=== PATIENT | female | born 1950 | race Caucasian/White ===

== ENCOUNTER → 2017-01-07 | Outpatient (REF) | payer MEDICARE, BC, OTHER | LOC: M LAB REF 16:41 | PROVIDERS: ATTEND Physician Assistant | DX: R30.0 Dysuria (principal) ==

== ENCOUNTER 2019-01-06 22:09 | Emergency (ER) | payer MEDICARE, BC, OTHER ==
[~2019-01-06] VITALS: Ht 165.1 cm; Wt 99.1 kg
[2019-01-07 00:18] LABS: INR 0.99; PROTHROMBIN TIME 12.8 SECONDS (11.8-14.0)
[2019-01-07 00:19] LABS: PARTIAL THROMBOPLASTIN TIME 28.1 SECONDS (25.0-38.4)
[2019-01-07 00:22] LABS: BASO % 0.1 % (0.0-1.0); EOS % 0.1 % (0.0-3.0); HEMOGLOBIN 14.7 g/dl (12.0-15.5); LYMPH # 2.1 10^3/uL (1.5-5.0); LYMPH % 24.3 % (24.0-44.0); MEAN CORPUSCULAR HEMOGLOBIN 31.6 pg (27.0-33.0); MEAN CORPUSCULAR HGB CONC 34.2 g/dl (32.0-36.5); MEAN CORPUSCULAR VOLUME 92.5 fl (80.0-96.0); MONO # 0.6 10^3/uL (0.0-0.8); MONO % 6.5 % (0.0-5.0); NEUTROPHILS # 5.8 10^3/uL (1.5-8.5); NEUTROPHILS % 68.6 % (36.0-66.0); PLATELET COUNT, AUTOMATED 265 10^3/uL (150-450); RED BLOOD COUNT 4.65 10^6/uL (4.00-5.40); WHITE BLOOD COUNT 8.4 10^3/uL (4.0-10.0)
[2019-01-07 00:24] LABS: ALBUMIN 3.4 GM/DL (3.2-5.2); BILIRUBIN,DIRECT 0.1 MG/DL (0.0-0.2); BILIRUBIN,TOTAL 0.3 MG/DL (0.2-1.0); TOTAL PROTEIN 7.2 GM/DL (6.4-8.2)
[2019-01-07] MEDS ORDERED: ONDANSETRON 4MG/2ML VIAL (J2405) IV ONE (00:45)
[2019-01-07] MEDS ORDERED: ASPI81TA85 PO (00:48)
[2019-01-07] MEDS ORDERED: PHEN30CA PO (00:48)
[2019-01-07] MEDS ORDERED: LEVO2TA PO (00:48)
[2019-01-07] MEDS ORDERED: SIMV20TA22 PO (00:48)
[2019-01-07] MEDS ORDERED: ISOVUE-370 76% 100ML VIAL (Q9967) As Ordered ONE (00:49)
[2019-01-07] MEDS: MORPHINE 4 MG/ML 1ML VIAL/SYRINGE (J2270) IV PRN ×2 (00:56→03:39)
--- NOTE | 2019-01-07 02:21 | REPVR ---
EXAM: CT Abdomen and Pelvis With Contrast EXAM DATE/TIME: 01/07/2019 12:42 AM CLINICAL HISTORY: 68 years old, female; Abdominal pain; Localized; Left lower quadrant (llq); Additional info: Llq pain TECHNIQUE: Imaging protocol: Computed tomography of the abdomen and pelvis with intravenous contrast. Radiation optimization: All CT scans at this facility use at least one of these dose optimization techniques: automated exposure control; mA and/or kV adjustment per patient size (includes targeted exams where dose is matched to clinical indication); or iterative reconstruction. Contrast material: ISO; Contrast volume: 100 ml; Contrast route: HAND; COMPARISON: No relevant prior studies available. FINDINGS: Heart: Cardiomegaly. Liver: Mild fatty infiltration of liver. Gallbladder and bile ducts: Normal. No calcified stones. No ductal dilation. Pancreas: Fatty atrophy of the pancreas. Spleen: Normal. No splenomegaly. Adrenals: Hyperplasia of the left adrenal gland versus nodule measuring up to 12.1 mm. Right adrenal gland is unremarkable. Kidneys and ureters: Normal. No hydronephrosis. Stomach and bowel: Multiple colonic diverticula most marked in the sigmoid diverticulum. Mild thickening of the sigmoid colon versus non-dilatation. No surrounding inflammatory changes. Mildly thickened and prominent small bowel loops measuring up to 3 cm in the left and mid abdomen. Contrast is seen passing through the bowel loops. Findings are concerning for enteritis in proper clinical setting. No evidence of bowel obstruction. Appendix: No evidence of appendicitis. Intraperitoneal space: Unremarkable. No free air. No significant fluid collection. Vasculature: Unremarkable. No abdominal aortic aneurysm. Lymph nodes: Unremarkable. No enlarged lymph nodes. Bladder: Unremarkable as visualized. Reproductive: Unremarkable as visualized. Bones/joints: Extensive degenerative changes with demineralization of the bones. Soft tissues: Unremarkable. IMPRESSION: Multiple colonic diverticula most marked in the sigmoid diverticulum. Mild thickening of the sigmoid colon versus non-dilatation. No surrounding inflammatory changes. Mildly thickened and prominent small bowel loops measuring up to 3 cm in the left and mid abdomen. Contrast is seen passing through the bowel loops. Findings are concerning for enteritis in proper clinical setting. No evidence of bowel obstruction. Electronically signed by: Cece Page On 01/07/2019 02:20:33 AM
[2019-01-07] MEDS ORDERED: metroNIDAZOLE (FLAGYL) 500 MG TAB PO ONE (05:00)
[2019-01-07] MEDS ORDERED: OXYCODONE/APAP 5MG/325MG(BULK FOR ED) 1 TABLET PO ONE (05:00)
[2019-01-07] MEDS ORDERED: CIPROFLOXACIN 500 MG TAB PO ONE (05:00)
[2019-01-07] MEDS ORDERED: PERC5TAB12 PO (05:04)
[2019-01-07] MEDS ORDERED: CIPR-249 PO (05:04)
[2019-01-07] MEDS ORDERED: FLAG500T PO (05:04)
[2019-01-07 05:20] VITALS: BP 156/87
--- NOTE | 2019-01-07 19:20 | ECGEPIP ---
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
[2019-01-08] MEDS ORDERED: PRAV40TA2 (13:08)
[2019-01-08] MEDS ORDERED: PHEN100C (13:08)
== END 2019-01-07 05:22 | disposition home or self-care (01) ==
LOC: M ED 22:09
DX: K57.32 Diverticulitis of large intestine without perforation or abscess without bleeding (principal); G40.909 Epilepsy, unspecified, not intractable, without status epilepticus; E03.9 Hypothyroidism, unspecified; F17.200 Nicotine dependence, unspecified, uncomplicated; Z79.82 Long term (current) use of aspirin; Z79.899 Other long term (current) drug therapy
CPT/HCPCS: 74177; 80047; 80076; 83690; 85025; 85610; 85730; 93005; 93041; 96374; 96375; 96376; 99285; J2270; J2405; Q9967

== ENCOUNTER 2019-01-08 12:57 | Emergency (ER) | payer MEDICARE, BC, OTHER ==
[~2019-01-08] VITALS: Ht 165.1 cm; Wt 99.7 kg
[~2019-01-08 12:57] MED LIST: ASPI81TA85 PO; CIPR-249 PO; FLAG500T PO; LEVO2TA PO; PERC5TAB12 PO; PHEN30CA PO; SIMV20TA2 PO
[2019-01-08] MEDS ORDERED: PHEN100C (13:08)
[2019-01-08] MEDS ORDERED: PRAV40TA2 (13:08)
[2019-01-08 14:45] LABS: BASO % 0.2 % (0.0-1.0); HEMATOCRIT 43.9 % (36.0-47.0); LYMPH # 1.8 10^3/uL (1.5-5.0); LYMPH % 27.6 % (24.0-44.0); MEAN CORPUSCULAR HEMOGLOBIN 32.3 pg (27.0-33.0); MEAN CORPUSCULAR HGB CONC 34.2 g/dl (32.0-36.5); MEAN CORPUSCULAR VOLUME 94.6 fl (80.0-96.0); MONO # 0.4 10^3/uL (0.0-0.8); MONO % 5.6 % (0.0-5.0); NEUTROPHILS # 4.3 10^3/uL (1.5-8.5); NEUTROPHILS % 66.3 % (36.0-66.0); PLATELET COUNT, AUTOMATED 230 10^3/uL (150-450); RED BLOOD COUNT 4.64 10^6/uL (4.00-5.40); WHITE BLOOD COUNT 6.4 10^3/uL (4.0-10.0)
[2019-01-08 15:24] LABS: ALBUMIN 3.4 GM/DL (3.2-5.2); ALT/SGPT 34 U/L (12-78); BILIRUBIN,DIRECT 0.1 MG/DL (0.0-0.2); BILIRUBIN,TOTAL 0.3 MG/DL (0.2-1.0); BLOOD UREA NITROGEN 8 MG/DL (7-18); CALCIUM LEVEL 9.1 MG/DL (8.8-10.2); CARBON DIOXIDE LEVEL 29 MEQ/L (21-32); CHLORIDE LEVEL 101 MEQ/L (98-107); CREATININE FOR GFR 0.56 MG/DL (0.55-1.30); GLOMERULAR FILTRATION RATE > 60.0 (>45); GLUCOSE, FASTING 112 MG/DL (70-100); LIPASE 86 U/L (73-393); POTASSIUM SERUM 4.1 MEQ/L (3.5-5.1); SODIUM LEVEL 136 MEQ/L (136-145); TOTAL PROTEIN 7.2 GM/DL (6.4-8.2)
[2019-01-08] MEDS ORDERED: NS 1,000 ML IV ONE (16:00)
[2019-01-08] MEDS ORDERED: ISOVUE-370 76% 100ML VIAL (Q9967) As Ordered ONE (16:33)
--- NOTE | 2019-01-08 17:01 | REP ---
Clinical: Increasing left-sided abdominal pain. Technique: Axial contrast enhanced images from the lung bases to the pubic symphysis using 100 ml Isovue 370 intravenous contrast material with coronal and sagittal re-formations. Comparison: 01/07/2019. Findings: Lung bases are clear. Visualized heart and pericardium normal. Liver, spleen, pancreas, gallbladder, bilateral adrenal glands and kidneys are normal / stable. The enteric system is without obstruction or acute inflammatory process. Normal terminal ileum and cecum are identified in the right lower quadrant. Sigmoid diverticula noted without definite evidence for acute diverticulitis. No ascites. No free air. No adenopathy. Abdominal aorta without aneurysm or dissection. Musculoskeletal structures demonstrate degenerative changes without focal abnormality. Impression: 1. Diverticulosis without definite evidence for acute diverticulitis. 2. No further acute abdominopelvic pathology appreciated. 3. No ascites, adenopathy, or focal inflammatory stranding. Electronically Signed by Nilo Flores MD 01/08/2019 04:52 P
[2019-01-08 17:04] VITALS: BP 153/80
== END 2019-01-08 17:35 | disposition home or self-care (01) ==
LOC: M ED 12:57
DX: K57.30 Diverticulosis of large intestine without perforation or abscess without bleeding (principal); Z79.82 Long term (current) use of aspirin; Z79.899 Other long term (current) drug therapy
CPT/HCPCS: 74177; 80048; 80076; 81001; 83690; 85025; 87088; 87186; 96360; 99284; Q9967

== ENCOUNTER 2020-10-27 21:30 | Observation (INO) | payer MEDICARE, BC, OTHER ==
[~2020-10-27] VITALS: Ht 172.7 cm; Wt 86.9 kg
[~2020-10-27 21:30] MED LIST changes: -ASPI81TA85 PO; +ASPI81TA86 PO; +PHEN100C; +PRAV40TA2 PO; -SIMV20TA2 PO; +SIMV20TA22 PO
[2020-10-27] MEDS ORDERED: ONDA8TAB10 PO (21:43)
[2020-10-27] MEDS ORDERED: NS 1,000 ML IV ONE (21:50)
[2020-10-27 22:30] LABS: VENOUS BASE EXCESS 1.6 (-2.0-2.0); VENOUS HCO3 26.8 MEQ/L (23.0-27.0); VENOUS O2 SATURATION 97.3 % (60.0-80.0); VENOUS PARTIAL PRESSURE CO2 44.2 mmHg (38.0-50.0); VENOUS PH 7.401 UNITS (7.330-7.430); VENOUS STANDARD HCO3 25.9 MEQ/L; VENOUS TOTAL CO2 28.2 MEQ/L (24.0-28.0)
[2020-10-27 22:32] LABS: BASO % 0.1 % (0.0-1.0); HEMATOCRIT 47.7 % (36.0-47.0); LYMPH # 1.2 10^3/uL (1.5-5.0); LYMPH % 8.1 % (24.0-44.0); MEAN CORPUSCULAR HEMOGLOBIN 31.6 pg (27.0-33.0); MEAN CORPUSCULAR HGB CONC 33.5 g/dl (32.0-36.5); MEAN CORPUSCULAR VOLUME 94.1 fl (80.0-96.0); MONO # 0.5 10^3/uL (0.0-0.8); MONO % 3.4 % (2.0-8.0); NEUTROPHILS # 12.5 10^3/uL (1.5-8.5); NEUTROPHILS % 87.8 % (36.0-66.0); PLATELET COUNT, AUTOMATED 290 10^3/uL (150-450); RED BLOOD COUNT 5.07 10^6/uL (4.00-5.40); WHITE BLOOD COUNT 14.3 10^3/uL (4.0-10.0)
--- NOTE | 2020-10-27 22:48 | REPVR ---
PROCEDURE INFORMATION: Exam: XR Chest Exam date and time: 10/27/2020 10:02 PM Age: 70 years old Clinical indication: Other: Chest pain TECHNIQUE: Imaging protocol: XR of the chest. Views: 1 view. COMPARISON: CR Chest, 2 view PA, Lat 01/29/2015 7:08 AM FINDINGS: Lungs: There are no interval infiltrates. Pleural spaces: Unremarkable. No pleural effusion. No pneumothorax. Heart/Mediastinum: The heart and mediastinum are unchanged. Bones/joints: Unremarkable. IMPRESSION: Negative chest without significant change from 01/29/2015. Electronically signed by: Jose M Lloyd On 10/27/2020 22:48:06 PM
[2020-10-27 23:10] LABS: ALBUMIN 2.9 GM/DL (3.2-5.2); ALT/SGPT 18 U/L (12-78); BILIRUBIN,DIRECT 0.1 MG/DL (0.0-0.2); BILIRUBIN,TOTAL 0.3 MG/DL (0.2-1.0); BLOOD UREA NITROGEN 11 MG/DL (7-18); CALCIUM LEVEL 8.6 MG/DL (8.8-10.2); CARBON DIOXIDE LEVEL 29 MEQ/L (21-32); CHLORIDE LEVEL 98 MEQ/L (98-107); CK-MB VALUE MASS < 1.0 NG/ML (<3.6); CPK CREATINE PHOSPHOKINASE 38 U/L (26-192); CREATININE FOR GFR 0.56 MG/DL (0.55-1.30); GLOMERULAR FILTRATION RATE > 60.0 (>45); GLUCOSE, FASTING 160 MG/DL (70-100); LIPASE 31 U/L (73-393); MB/CK RELATIVE INDEX 2.63 (< OR =4); POTASSIUM SERUM 4.2 MEQ/L (3.5-5.1); SODIUM LEVEL 134 MEQ/L (136-145); TOTAL PROTEIN 6.9 GM/DL (6.4-8.2); TROPONIN I < 0.02 NG/ML (< 0.10)
[2020-10-27] MEDS ORDERED: ISOVUE-370 76% 100ML VIAL As Ordered ONE (23:24)
--- NOTE | 2020-10-27 23:58 | REPVR ---
PROCEDURE INFORMATION: Exam: CT Abdomen And Pelvis With Contrast Exam date and time: 10/27/2020 11:33 PM Age: 70 years old Clinical indication: Abdominal pain; Generalized; Additional info: Abd pain, n/v, eval for diverticulitis TECHNIQUE: Imaging protocol: Computed tomography of the abdomen and pelvis with contrast. Radiation optimization: All CT scans at this facility use at least one of these dose optimization techniques: automated exposure control; mA and/or kV adjustment per patient size (includes targeted exams where dose is matched to clinical indication); or iterative reconstruction. Contrast material: ISOVUE 370; Contrast volume: 100 ml; Contrast route: INTRAVENOUS (IV); COMPARISON: CT ABD/PEL W/IV CONTRAST ONLY 01/08/2019 4:33 PM FINDINGS: Lungs: Minimal bibasilar fibro-atelectatic change. Liver: Normal. No mass. Gallbladder and bile ducts: Normal. No calcified stones. No ductal dilation. Pancreas: Edema and infiltration in the retroperitoneum centered around the duodenal sweep with extension into the mesenteric root and along the anterior pararenal fascia, right greater than left and around the aorta and cava extending into the pelvis including presacral soft tissues. Some infiltration surrounds the pancreatic head and uncinate and findings may reflect pancreatitis. Spleen: Normal. No splenomegaly. Adrenal glands: Slight fullness of the left adrenal which may reflect hyperplasia. Kidneys and ureters: There is a right renal cyst measuring 10 mm which is too small to characterize. Stomach and bowel: There is colonic diverticulosis without evidence of diverticulitis. Appendix: There are no changes of appendicitis. A normal appendix is not seen. Intraperitoneal space: Unremarkable. No free air. No significant fluid collection. Vasculature: Unremarkable. No abdominal aortic aneurysm. Lymph nodes: Unremarkable. No enlarged lymph nodes. Urinary bladder: Unremarkable as visualized. Reproductive: Status post hysterectomy. Bones/joints: Degenerative changes of the lumbar spine with facet arthropathy, greatest at L3-L4 with mild anterolisthesis at this level. Soft tissues: Partially calcified mass in the lateral right breast which is incompletely visualized. IMPRESSION: 1. Retroperitoneal edema and infiltration which is centered about the duodenal sweep with extension around the aorta and cava and anterior pararenal fascia and central mesenteric root. The edema includes the pancreatic head and uncinate and findings may reflect pancreatitis. 2. Colonic diverticulosis without diverticulitis. 3. Status post hysterectomy. COMMENTS: Consistent with the [employer]'s Incidental Findings Committee white paper (J Am Mariama Radiol 2018): Any incidental renal lesion less than 1 cm or classified as too small to characterize, or any incidental cystic renal lesion characterized as simple-appearing, is likely benign. No follow-up imaging is recommended for these lesions per consensus recommendations based on imaging criteria. Electronically signed by: Jose M Lloyd On 10/27/2020 23:58:25 PM
[2020-10-28] MEDS ORDERED: MORPHINE 4 MG/ML 1ML VIAL/SYRINGE (J2270) IV ONE (00:40)
[2020-10-28] MEDS ORDERED: ONDANSETRON 4MG/2ML VIAL IV ONE (00:40)
[2020-10-28] MEDS ORDERED: D31000TA2 PO (01:22)
[2020-10-28] MEDS ORDERED: MULTTAB86 PO (01:22)
[2020-10-28] MEDS ORDERED: VITA500C24 PO (01:22)
[2020-10-28] MEDS ORDERED: ASPI81TA26 PO (01:22)
[2020-10-28] MEDS ORDERED: KETOROLAC 30 MG/ML 1ML VIAL IV PRN (01:55)
[2020-10-28] MEDS ORDERED: ONDANSETRON 4MG/2ML VIAL IV PRN (01:55)
[2020-10-28] MEDS ORDERED: ACETAMINOPHEN TAB 650MG DOSE (2X325MG) PO PRN (01:55)
[2020-10-28] MEDS ORDERED: MOM 30ML SUSPENSION UDC PO PRN (01:55)
[2020-10-28] MEDS ORDERED: MAALOX 30 ML SUSP *UDC PO PRN (01:55)
--- NOTE | 2020-10-28 02:12 | HPEPDOC ---
[facility] Medical History & Physical Date of Admission Oct 28, 2020 Date of Service: Oct 28, 2020 Attending Physician: DONELL JACKSON MD History and Physical CHIEF COMPLAINT: [70 y/o female c/o n/v, abd pain, chest pain x1 day] HISTORY OF PRESENT ILLNESS: [This is a 70 y/o female with a pmh of epilepsy, diverticulosis, gerd and hypothyroidism who presents to the ED with a one day history of intractable n/v, abdominal pain worse in the lower quadrants and left sided chest pain that does not radiate. Patient states that she woke up with her symptoms and can not identify a precursor event, however did eat out the night before. Patient states that she feels as though her symptoms are related to her diverticulosis. Patient states that she has felt feverish the past day as well. Patient endorses constipation, saying that her last bowel movement was three days ago, and this is not normal for her. Patient also admits to poor oral intake d/t her nausea and vomiting. Patient also admits to a recent sinus infection in which she took some azithromycin she had at home for which helped her congestion and cough. Patient denies current sob, syncope, headache, dark stools, dysuria, peripheral edema. ] PAST MEDICAL HISTORY: 1. [See HPI PAST SURGICAL HISTORY: 1. [Hysterectomy]. SOCIAL HISTORY: Marital status: []. Resides in: [Home alone] Tobacco use:[Patient admits to smoking heavily in the past week as she lost her last thursday] ETOH: [Denies] Illicit drug use: [Denies] FAMILY HISTORY: Reviewed - none pertinent ALLERGIES: Please see below. REVIEW OF SYSTEMS: CONSTITUTIONAL: [See HPI]. HEENT: [See HPI]. CARDIOVASCULAR: [See HPI]. RESPIRATORY: [See HPI]. GASTROINTESTINAL: [See HPI]. GENITOURINARY: [See HPI]. SKIN: [Denies rash]. MUSCULOSKELETAL: [Denies acute joint/back pain]. NEUROLOGICAL: [See HPI]. PSYCHIATRIC: [Admits to mild depression]. ENDOCRINE: [Denies hx of DM]. HEMATOLOGIC/LYMPHATIC: [Denies easy bruising]. HOME MEDICATIONS: Please see below. PHYSICAL EXAMINATION: VITAL SIGNS: Please see below. GENERAL APPEARANCE: [This is an uncomfortable appearing 70 y/o female. She does not appear to be in any respiratory distress.]. HEENT: [No mass or lesion. No sinus tenderness. EOMI. No scleral icterus. Oral mucosa dry.]. CARDIOVASCULAR: [REgular rate, rhythm. NO murmurs, rubs, gallops]. LUNGS: [Good air flow b/l. No wheezing, rales, rhonchi]. ABDOMEN: [Tender throughout, most tender to RLQ and RUQ. Soft. ]. MUSCULOSKELETAL: [No joint deformity]. EXTREMITIES: [No peripheral edema. No overlying skin changes. Pulses intact.]. NEUROLOGICAL: [Speech clear. A+Ox3. No focal deficits.]. PSYCHIATRIC: [Depressed mood. Affect appears appropriate.]. LABORATORY DATA: See below. IMAGING: [CXR: FINDINGS: Lungs: There are no interval infiltrates. Pleural spaces: Unremarkable. No pleural effusion. No pneumothorax. Heart/Mediastinum: The heart and mediastinum are unchanged. Bones/joints: Unremarkable. IMPRESSION: Negative chest without significant change from 01/29/2015. CT Abd/pelvis: FINDINGS: Lungs: Minimal bibasilar fibro-atelectatic change. Liver: Normal. No mass. Gallbladder and bile ducts: Normal. No calcified stones. No ductal dilation. Pancreas: Edema and infiltration in the retroperitoneum centered around the duodenal sweep with extension into the mesenteric root and along the anterior pararenal fascia, right greater than left and around the aorta and cava extending into the pelvis including presacral soft tissues. Some infiltration surrounds the pancreatic head and uncinate and findings may reflect pancreatitis. Spleen: Normal. No splenomegaly. Adrenal glands: Slight fullness of the left adrenal which may reflect hyperplasia. Kidneys and ureters: There is a right renal cyst measuring 10 mm which is too small to characterize. Stomach and bowel: There is colonic diverticulosis without evidence of diverticulitis. Appendix: There are no changes of appendicitis. A normal appendix is not seen. Intraperitoneal space: Unremarkable. No free air. No significant fluid collection. Vasculature: Unremarkable. No abdominal aortic aneurysm. Lymph nodes: Unremarkable. No enlarged lymph nodes. Urinary bladder: Unremarkable as visualized. Reproductive: Status post hysterectomy. Bones/joints: Degenerative changes of the lumbar spine with facet arthropathy, greatest at L3-L4 with mild anterolisthesis at this level. Soft tissues: Partially calcified mass in the lateral right breast which is incompletely visualized. IMPRESSION: 1. Retroperitoneal edema and infiltration which is centered about the duodenal sweep with extension around the aorta and cava and anterior pararenal fascia and central mesenteric root. The edema includes the pancreatic head and uncinate and findings may reflect pancreatitis. 2. Colonic diverticulosis without diverticulitis. 3. Status post hysterectomy. ] MICROBIOLOGY: Please see below. ASSESSMENT: [This is a 70 y/o female with a pmh of epilepsy, diverticulosis, gerd and hypothyroidism who presents to the ED with a one day history of intractable n/v, abdominal pain worse in the lower quadrants and left sided chest pain that does not radiate. Imaging shows possible pancreatitis.]. . PLAN: 1. [Abdominal pain, n/v - Diverticulitis vs. pancreatitis. More likely early/mild pancreatitis - only sirs criteria is leukocytosis of 14.3 - Patient has normal range lipase, however imaging is showing pancreatitis and patients symptomatology more closely represents this. - Day team can consider gi consult for a ct read - Will begin IVF - Zofran for nausea - toradol, morphine for pain - will trend lipase - will admit to med surg under obs for iv abx and nausea control 2. Epilepsy - continue dilantin 3. HLD - continue pravastatin 4. Hypothyroidism - continue synthroid 5. Nicotine dependence - patch ordered DVT prophylaxis - Lovenox ordered]. Vital Signs Vital Signs Date Time Temp Pulse Resp B/P (MAP) Pulse Ox O2 Delivery O2 Flow Rate FiO2 10/27/20 23:20 10/27/20 21:31 96.8 89 18 92 Room Air Laboratory Data Labs 24H Laboratory Tests 2 10/27/20 22:23: Immature Granulocyte % (Auto) 0.6, Neutrophils (%) (Auto) 87.8H, Lymphocytes (%) (Auto) 8.1L, Monocytes (%) (Auto) 3.4, Eosinophils (%) (Auto) 0.0, Basophils (%) (Auto) 0.1, Neutrophils # (Auto) 12.5H, Lymphocytes # (Auto) 1.2L, Monocytes # (Auto) 0.5, Eosinophils # (Auto) 0.0, Basophils # (Auto) 0.0, Nucleated Red Blood Cells % (auto) 0.0, Blood Gas Bicarbonate Standard 25.9, Venous Blood pH 7.401, Venous Blood Partial Pressure CO2 44.2, Venous Blood Partial Pressure O2 92.0H, Venous Blood Total Carbon Dioxide 28.2H, Venous Blood HCO3 26.8, Venous Blood Oxygen Saturation 97.3H, Venous Blood Base Excess 1.6, Anion Gap 7L, Glomerular Filtration Rate > 60.0, Calcium Level 8.6L, Total Bilirubin 0.3, Direct Bilirubin 0.1, Aspartate Amino Transf (AST/SGOT) 11, Alanine Aminotransferase (ALT/SGPT) 18, Alkaline Phosphatase 135H, Total Creatine Kinase 38, Creatine Kinase MB < 1.0, Creatine Kinase MB Relative Index 2.63, Troponin I < 0.02, Total Protein 6.9, Albumin 2.9L, Albumin/Globulin Ratio 0.7L, Lipase 31L 10/27/20 22:41: POC Troponin I (Misc) 0.00 CBC/BMP Laboratory Tests 10/27/20 22:23 Home Medications Scheduled Ascorbic Acid (Vitamin C) 500 Mg Capsule, 500 MG PO DAILY Aspirin (Aspirin EC) 81 Mg Tablet.dr, 81 MG PO DAILY Cholecalciferol (Vitamin D3) (Vitamin D3) 1,000 Unit Tablet, 1,000 UNITS PO DAILY Levothyroxine Sodium (Synthroid) 200 Mcg Tablet, 200 MCG PO DAILY Multivitamin (Multi-Vitamin Daily) 1 Each Tablet, 1 TAB PO DAILY Phenytoin Sodium Extended (Phenytoin Sodium Extended) 100 Mg Capsule, 300 MG BID Pravastatin Sodium (Pravastatin Sodium) 40 Mg Tablet, 40 MG PO QHS Scheduled PRN Ondansetron HCl (Ondansetron HCl) 8 Mg Tablet, 8 MG PO TID PRN for NAUSEA OR VOMITING Allergies Coded Allergies: No Known Allergies (Verified , 11/07/02) A-FIB/CHADSVASC A-FIB History Current/History of A-Fib/PAF?: No BETTY LONGORIA Oct 28, 2020 02:12
[2020-10-28] MEDS: PRAVASTATIN 20 MG TAB PO SCH ×2 (02:46→20:00)
[2020-10-28] MEDS: LR 1,000 ML IV SCH ×3 (02:47→20:00)
[2020-10-28 03:10] VITALS: BP 157/74
[2020-10-28 06:01] VITALS: BP 135/81
[2020-10-28] MEDS: LEVOTHYROXINE 100MCG TABLET (0.1MG) PO SCH (06:31)
[2020-10-28] MEDS: PHENYTOIN ER 100 MG CAP PO SCH ×2 (08:19→19:59)
[2020-10-28] MEDS: ASPIRIN 81MG ENTERIC TABLET PO SCH (08:19)
[2020-10-28] MEDS: DOCUSATE SODIUM 100MG CAPSULE PO SCH ×2 (08:19→19:59)
[2020-10-28] MEDS: ENOXAPARIN 40MG/0.4ML SYRINGE (J1650 PER 10MG) SC SCH (08:20)
[2020-10-28 08:44] LABS: INR 0.96
[2020-10-28 08:45] LABS: PARTIAL THROMBOPLASTIN TIME 26.9 SECONDS (24.2-38.5)
[2020-10-28 08:58] LABS: CK-MB VALUE MASS < 1.0 NG/ML (<3.6); CPK CREATINE PHOSPHOKINASE 35 U/L (26-192); MB/CK RELATIVE INDEX 2.86 (< OR =4); TROPONIN I < 0.02 NG/ML (< 0.10)
[2020-10-28 14:00] VITALS: BP 122/48
[2020-10-28] MEDS ORDERED: PANTOPRAZOLE 40MG VIAL (C9113 PER 1) IV ONE (16:00)
[2020-10-28 16:18] LABS: BASO % 0.2 % (0.0-1.0); HEMATOCRIT 42.3 % (36.0-47.0); HEMOGLOBIN 13.6 g/dl (12.0-15.5); LYMPH # 1.5 10^3/uL (1.5-5.0); LYMPH % 14.4 % (24.0-44.0); MEAN CORPUSCULAR HGB CONC 32.2 g/dl (32.0-36.5); MEAN CORPUSCULAR VOLUME 96.4 fl (80.0-96.0); MONO # 0.6 10^3/uL (0.0-0.8); MONO % 5.9 % (2.0-8.0); NEUTROPHILS # 8.2 10^3/uL (1.5-8.5); NEUTROPHILS % 79.1 % (36.0-66.0); PLATELET COUNT, AUTOMATED 235 10^3/uL (150-450); RED BLOOD COUNT 4.39 10^6/uL (4.00-5.40); WHITE BLOOD COUNT 10.4 10^3/uL (4.0-10.0)
[2020-10-28] MEDS: SUCRALFATE 1 GM TAB PO SCH ×2 (16:38→20:00)
[2020-10-28 16:45] LABS: ALBUMIN 2.4 GM/DL (3.2-5.2); ALT/SGPT 15 U/L (12-78); AMYLASE 25 U/L (25-115); BILIRUBIN,TOTAL 0.2 MG/DL (0.2-1.0); BLOOD UREA NITROGEN 7 MG/DL (7-18); CALCIUM LEVEL 8.3 MG/DL (8.8-10.2); CARBON DIOXIDE LEVEL 31 MEQ/L (21-32); CHLORIDE LEVEL 100 MEQ/L (98-107); CREATININE FOR GFR 0.43 MG/DL (0.55-1.30); GLOMERULAR FILTRATION RATE > 60.0 (>45); GLUCOSE, FASTING 86 MG/DL (70-100); LIPASE 46 U/L (73-393); POTASSIUM SERUM 4.3 MEQ/L (3.5-5.1); SODIUM LEVEL 136 MEQ/L (136-145); TOTAL PROTEIN 5.7 GM/DL (6.4-8.2)
[2020-10-28 16:46] LABS: CK-MB VALUE MASS < 1.0 NG/ML (<3.6); CPK CREATINE PHOSPHOKINASE 39 U/L (26-192); MB/CK RELATIVE INDEX 2.56 (< OR =4); TROPONIN I < 0.02 NG/ML (< 0.10)
--- NOTE | 2020-10-28 21:04 | ECGEPIP ---
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
[2020-10-28 22:00] VITALS: BP 132/74
[2020-10-29 00:45] LABS: CPK CREATINE PHOSPHOKINASE 37 U/L (26-192); TROPONIN I < 0.02 NG/ML (< 0.10)
[2020-10-29] MEDS: LR 1,000 ML IV SCH (03:58)
[2020-10-29] MEDS: LEVOTHYROXINE 100MCG TABLET (0.1MG) PO SCH (05:15)
[2020-10-29 06:00] VITALS: BP 132/65
[2020-10-29 06:22] LABS: HEMOGLOBIN 12.9 g/dl (12.0-15.5); MEAN CORPUSCULAR HEMOGLOBIN 30.6 pg (27.0-33.0); MEAN CORPUSCULAR HGB CONC 32.3 g/dl (32.0-36.5); PLATELET COUNT, AUTOMATED 219 10^3/uL (150-450); RED BLOOD COUNT 4.21 10^6/uL (4.00-5.40); WHITE BLOOD COUNT 8.3 10^3/uL (4.0-10.0)
[2020-10-29 06:53] LABS: ALBUMIN 2.4 GM/DL (3.2-5.2); ALT/SGPT 15 U/L (12-78); BILIRUBIN,TOTAL 0.3 MG/DL (0.2-1.0); BLOOD UREA NITROGEN 5 MG/DL (7-18); CALCIUM LEVEL 8.1 MG/DL (8.8-10.2); CARBON DIOXIDE LEVEL 30 MEQ/L (21-32); CHLORIDE LEVEL 108 MEQ/L (98-107); CREATININE FOR GFR 0.37 MG/DL (0.55-1.30); GLOMERULAR FILTRATION RATE > 60.0 (>45); GLUCOSE, FASTING 95 MG/DL (70-100); LIPASE 43 U/L (73-393); SODIUM LEVEL 141 MEQ/L (136-145); TOTAL PROTEIN 5.9 GM/DL (6.4-8.2)
[2020-10-29] MEDS ORDERED: SUCR1TA PO (07:21)
[2020-10-29] MEDS ORDERED: MEGE1SUS8 PO (07:21)
[2020-10-29] MEDS ORDERED: PRIL20TA2 PO (07:21)
[2020-10-29] MEDS: PHENYTOIN ER 100 MG CAP PO SCH (07:39)
[2020-10-29] MEDS: SUCRALFATE 1 GM TAB PO SCH ×2 (07:40→11:21)
[2020-10-29] MEDS: ASPIRIN 81MG ENTERIC TABLET PO SCH (07:40)
[2020-10-29] MEDS: ENOXAPARIN 40MG/0.4ML SYRINGE (J1650 PER 10MG) SC SCH (07:40)
[2020-10-29] MEDS: DOCUSATE SODIUM 100MG CAPSULE PO SCH (07:40)
--- NOTE | 2020-10-29 08:43 | REP ---
INDICATION: r/o dvt. COMPARISON: None. TECHNIQUE: Multiple ultrasonographic images of the deep venous structures of the right upper extremity were obtained to rule out deep venous thrombosis. The contralateral subclavian vein was also interrogated in a limited fashion for comparison. FINDINGS: There is no abnormal echogenic material seen in any of the visualized deep venous structures of the right upper extremity. Coaptation where applicable is appropriate throughout. There is evidence of echogenic material seen in the cephalic vein distal to the humerus not anatomically considered part of the deep venous system. IMPRESSION: As above <Electronically signed by Jose R Curran > 10/29/20 [id number]
[2020-10-29] MEDS ORDERED: PANTOPRAZOLE 40MG VIAL (C9113 PER 1) IV SCH (09:00)
[2020-10-29] MEDS ORDERED: PANTOPRAZOLE 40MG TAB (PROTONIX) PO SCH (09:00)
[2020-10-29] MEDS ORDERED: ELIQ5TAB PO (09:29)
[2020-10-29] MEDS ORDERED: APIXABAN 5 MG TAB (ELIQUIS) PO ONE (09:30)
--- NOTE | 2020-10-29 13:39 | DSES ---
DISCHARGE SUMMARY DATE OF ADMISSION: 10/27/2020 DATE OF DISCHARGE: 10/29/2020 PRIMARY DISCHARGE DIAGNOSES: 1. Abdominal pain, duodenitis versus pancreatitis. 2. Intentional weight loss due to decreased oral intake as outpatient. 3. History of epilepsy. 4. Hyperlipidemia. 5. Hypothyroidism. 6. Nicotine dependence. 7. Right upper extremity intravenous (IV) infiltration with superficial thrombus in the cephalic vein distal to the humerus. DISCHARGE MEDICATIONS: - Prilosec 40 mg daily - Carafate 1 gram in the morning and at bedtime - apixaban 10 mg by mouth twice a day for seven days and 5 mg daily for one month for superficial vein thrombosis secondary to peripheral IV line placement. Patient's aspirin to be discontinued during that one month period and resumed at 81 mg after Eliquis is completed. - megestrol 625 daily - vitamin C 500 mg daily - vitamin D 1000 units daily - Synthroid 200 mcg daily - multivitamin one tablet daily - Zofran 8 mg three times a day as needed for nausea - phenytoin 300 mg twice a day - pravastatin 40 mg at bedtime DISCHARGE INSTRUCTIONS: Follow up with primary care physician within five days of hospital discharge. Monitor for any signs of gastrointestinal (GI) bleeding, bright red blood per rectum, black tarry stools, hematemesis, and call your doctor if any should occur. Primary care physician is to refer to gastroenterology or general surgery regarding complaints of abdominal pain with concurrent weight loss for esophagogastroduodenoscopy (EGD) and colonoscopy as outpatient. HOSPITAL COURSE: This is a 70-year-old female admitted on 10/27/2020 with complaints of abdominal pain and chest pain for the past one day. Patient had also felt feverish for the past day. She admits to having significant stress at home and has not been eating and missing her meals for the past three months since her had been ill and had last week. Patient admits to not having much appetite and has skipped meals for the past three months and presented with abdominal discomfort, chest pain. CT abdomen and pelvis to evaluate patient's pain showed retroperitoneal edema infiltration centered around the duodenal sweep with extension around the aorta and central and anterior pararenal fascia and central mesenteric root. Edema includes the pancreatic head and uncinate process, which may reflect pancreatitis, colonic diverticulosis without diverticulitis. Patient had swelling of the right upper extremity after peripheral IV was attempted and swelling occurred. She was found to have echogenic material in the cephalic vein distal into the humerus in the right upper extremity with no deep venous thrombosis. Patient was given the option to not treat the right superficial cephalic vein thrombus versus be placed on Eliquis. Patient agreed to be placed on Eliquis. Her aspirin was discontinued. During the hospital stay she was on Lovenox and she is to take the Eliquis at home. Patient had resolution of her abdominal discomfort, initially was on a clear liquid diet, IV fluids overnight. Lipase levels were normal. Patient's abdominal pain was tolerable and she did not have nausea, vomiting or worsening pain with advancing her diet to low fat, low cholesterol diet. Patient is discharged in stable condition. PHYSICAL EXAMINATION ON DISCHARGE: Temperature 97.8, pulse 77, respiratory rate 18, blood pressure 132/65, 94% on room air. GENERAL: Awake, alert, oriented to person, place and time, answering questions appropriately. HEENT: No jugular venous distention (JVD), thyromegaly or cervical adenopathy. LUNGS: Clear to auscultation. No wheezing, rales or rhonchi. HEART: S1, S2. Sinus rhythm. ABDOMEN: Obese, nondistended. No rebound or guarding. Positive bowel sounds times four quadrants. EXTREMITIES: No cyanosis, clubbing or pitting edema. LABORATORY DATA: Laboratory data, microbiology, imaging studies: Please see the chart. TIME SPENT ON DISCHARGE: 30 minutes.
== END 2020-10-29 13:17 | disposition home or self-care (01) ==
LOC: M ED 21:30 → M 4MAIN 21:31 → UNDOADMIN 21:31 → M MSPAV 21:31 → INTOOBSV 21:31 → ENRESERV 10-28 02:47
PROVIDERS: ADMIT Family Medicine; ATTEND General Practice
DX: R10.9 Unspecified abdominal pain (principal); K29.80 Duodenitis without bleeding; R63.4 Abnormal weight loss; E78.49 Other hyperlipidemia; E03.9 Hypothyroidism, unspecified; F17.218 Nicotine dependence, cigarettes, with other nicotine-induced disorders; G40.909 Epilepsy, unspecified, not intractable, without status epilepticus; I82.621 Acute embolism and thrombosis of deep veins of right upper extremity; Z79.899 Other long term (current) drug therapy; Z79.82 Long term (current) use of aspirin; K21.9 Gastro-esophageal reflux disease without esophagitis
CPT/HCPCS: 36415; 71045; 74177; 80048; 80053; 80076; 81001; 82150; 82550; 82553; 82803; 83690; 83735; 84484; 85025; 85027; 85610; 85730; 93005; 93041; 93971; 96361; 96372; 96374; 96375; 99285; C9113; G0378; J1650; J2270; J2405; Q9967

== ENCOUNTER → 2021-03-18 | Outpatient (CLI) | payer MEDICARE, BC, OTHER ==
[~2021-03-18] MED LIST changes: +ASPI81TA26 PO; +D31000TA2 PO; +ELIQ5TAB PO; +MEGE1SUS8 PO; +MULTTAB86 PO; +ONDA8TAB10 PO; +PRIL20TA2 PO; +SUCR1TA PO; +VITA500C24 PO
[2021-03-18 08:01] LABS: ALBUMIN 2.9 GM/DL (3.2-5.2); ALT/SGPT 18 U/L (12-78); BILIRUBIN,TOTAL 0.2 MG/DL (0.2-1.0); BLOOD UREA NITROGEN 8 MG/DL (7-18); CALCIUM LEVEL 8.6 MG/DL (8.8-10.2); CARBON DIOXIDE LEVEL 31 MEQ/L (21-32); CHLORIDE LEVEL 108 MEQ/L (98-107); CHOLESTEROL LEVEL 162 MG/DL (<200); CHOLESTEROL RISK RATIO 2.025 (<5); CREATININE FOR GFR 0.65 MG/DL (0.55-1.30); GLOMERULAR FILTRATION RATE > 60.0 (>45); GLUCOSE, FASTING 90 MG/DL (70-100); HDL CHOLESTEROL 80 MG/DL (>40); LDL CHOLESTEROL 71 MG/DL (<100); NON-HDL-C 82 MG/DL; PHENYTOIN (DILANTIN) 15.8 UG/ML (10.0-20.0); POTASSIUM SERUM 4.3 MEQ/L (3.5-5.1); SODIUM LEVEL 143 MEQ/L (136-145); TOTAL PROTEIN 6.6 GM/DL (6.4-8.2); TRIGLYCERIDES LEVEL 56 MG/DL (<150)
[2021-03-18 10:44] LABS: TOTAL 25(OH) VITAMIN D 43.8 NG/ML (30.0-100.0)
== END ==
LOC: M LAB 07:05
PROVIDERS: ATTEND Family Medicine
DX: E03.9 Hypothyroidism, unspecified (principal)

== ENCOUNTER → 2021-05-14 | Outpatient (CLI) | payer MEDICARE, BC, OTHER ==
[~2021-05-14] MED LIST changes: +ONDA-84 PO; -ONDA8TAB10 PO
== END ==
LOC: M WHC 09:23
PROVIDERS: ATTEND Family Medicine
DX: R92.2 Inconclusive mammogram (principal); M85.851 Other specified disorders of bone density and structure, right thigh; M85.852 Other specified disorders of bone density and structure, left thigh

== ENCOUNTER → 2021-05-21 | Outpatient (CLI) | payer MEDICARE, BC, OTHER | LOC: M WHC 13:23 | PROVIDERS: ATTEND Family Medicine | DX: R92.8 Other abnormal and inconclusive findings on diagnostic imaging of breast (principal) | CPT/HCPCS: 77065; G0279 ==

== ENCOUNTER → 2021-06-11 | Outpatient (CLI) | payer MEDICARE, BC, OTHER ==
[~2021-06-11] MED LIST changes: +**SFHN** LIDOCAINE 1% MDV 20ML VIAL ONE; +**SFHN** SODIUM BICARBONATE 8.4% 10MEQ 10ML VIAL ONE; -D31000TA2 PO; +VITA100093 PO
[2021-06-11 09:35] VITALS: BP 138/80
== END ==
LOC: M WHCPRO 07:45
PROVIDERS: ATTEND Family Medicine
DX: N60.22 Fibroadenosis of left breast (principal)

== ENCOUNTER → 2021-07-11 | Outpatient (CLI) | payer MEDICARE, BC, OTHER ==
[~2021-07-11] MED LIST changes: -**SFHN** LIDOCAINE 1% MDV 20ML VIAL ONE; -**SFHN** SODIUM BICARBONATE 8.4% 10MEQ 10ML VIAL ONE
== END ==
LOC: M PLALAB 08:54
PROVIDERS: ATTEND Family Medicine
DX: E03.9 Hypothyroidism, unspecified (principal)

== ENCOUNTER 2021-12-20 20:07 | Inpatient (IN) | payer MEDICARE, BC, OTHER ==
[~2021-12-20] VITALS: Ht 157.5 cm; Wt 81.5 kg
[2021-12-20] MEDS ORDERED: PHEN50CH4 PO (20:14)
[2021-12-20] MEDS ORDERED: PHEN50TA PO (20:14)
[2021-12-20] MEDS ORDERED: PHEN100C PO (20:16)
[2021-12-20 22:02] LABS: BASO % 0.3 % (0.0-1.0); HEMATOCRIT 44.1 % (36.0-47.0); HEMOGLOBIN 15.3 g/dl (12.0-15.5); LYMPH # 1.6 10^3/uL (1.5-5.0); LYMPH % 15.3 % (24.0-44.0); MEAN CORPUSCULAR HEMOGLOBIN 31.9 pg (27.0-33.0); MEAN CORPUSCULAR HGB CONC 34.7 g/dl (32.0-36.5); MEAN CORPUSCULAR VOLUME 91.9 fl (80.0-96.0); MONO # 0.7 10^3/uL (0.0-0.8); MONO % 6.5 % (2.0-8.0); NEUTROPHILS # 8.3 10^3/uL (1.5-8.5); NEUTROPHILS % 77.4 % (36.0-66.0); PLATELET COUNT, AUTOMATED 259 10^3/uL (150-450); WHITE BLOOD COUNT 10.7 10^3/uL (4.0-10.0)
[2021-12-20 22:37] LABS: ALBUMIN 3.4 GM/DL (3.2-5.2); BILIRUBIN,DIRECT 0.2 MG/DL (0.0-0.2); BILIRUBIN,TOTAL 0.4 MG/DL (0.2-1.0); TOTAL PROTEIN 7.1 GM/DL (6.4-8.2)
[2021-12-20] MEDS ORDERED: ONDANSETRON 4MG 2ML VIAL IV ONE (22:40)
[2021-12-20] MEDS ORDERED: NS 1,000 ML IV ONE (22:40)
[2021-12-20] MEDS ORDERED: PHENYTOIN 100 MG/2 ML VIAL (J1165) IV ONE (22:45)
[2021-12-20] MEDS ORDERED: ISOVUE-370 76% 100ML VIAL As Ordered ONE (22:47)
[2021-12-21] MEDS ORDERED: PHENYTOIN 100 MG/2 ML VIAL (J1165) IV ONE
[2021-12-21 00:11] LABS: APPEARANCE, URINE MANUAL CLEAR (CLEAR); COLOR, URINE MANUAL YELLOW (YELLOW); SPECIFIC GRAVITY,URINE MANUAL 1.005 (1.002-1.035)
[2021-12-21 00:12] LABS: BILIRUBIN, URINE MANUAL NEGATIVE (NEGATIVE); BLOOD URINE MANUAL POSITIVE (NEGATIVE); GLUCOSE, URINE (UA) MANUAL NEGATIVE (NEGATIVE); KETONE, URINE MANUAL NEGATIVE (NEGATIVE); LEUKOCYTE ESTERASE, URINE MAN POSITIVE (NEGATIVE); NITRITE, URINE MANUAL NEGATIVE (NEGATIVE); PROTEIN, URINE MANUAL NEGATIVE (NEGATIVE); UROBILINOGEN, URINE MANUAL NORMAL (NORMAL)
[2021-12-21 00:23] LABS: SQUAMOUS EPITHELIAL CELL URINE SMALL AMOUNT /hpf (SMALL AMT)
[2021-12-21 00:24] LABS: AMORPHOUS SEDIMENT, URINE SMALL AMOUNT (NEGATIVE); BACTERIA, URINE SMALL AMOUNT; HYALINE CAST, URINE NONE SEEN /lpf (0-1)
[2021-12-21] MEDS ORDERED: NICO1LOZ11 MT (00:47)
[2021-12-21] MEDS ORDERED: LEVO175T19 PO (00:47)
[2021-12-21] MEDS ORDERED: HOME MED LIST COMPLETE! XX SCH (00:50)
[2021-12-21] MEDS ORDERED: KETOROLAC 30 MG/ML 1ML VIAL IV PRN (01:15)
[2021-12-21] MEDS ORDERED: MORPHINE 2 MG/ML 1ML VIAL IV PRN (01:15)
[2021-12-21 01:37] LABS: RSV AMPLIFICATION NEGATIVE (NEGATIVE)
[2021-12-21 02:35] VITALS: BP 156/77
[2021-12-21] MEDS: NS 1,000 ML IV SCH ×4 (03:14→22:17)
[2021-12-21] MEDS: ONDANSETRON 4MG 2ML VIAL IV PRN ×2 (03:14→11:43)
[2021-12-21 04:23] LABS: HEMOGLOBIN 14.3 g/dl (12.0-15.5); MEAN CORPUSCULAR HEMOGLOBIN 31.6 pg (27.0-33.0); MEAN CORPUSCULAR VOLUME 92.9 fl (80.0-96.0); PLATELET COUNT, AUTOMATED 233 10^3/uL (150-450); RED BLOOD COUNT 4.52 10^6/uL (4.00-5.40); WHITE BLOOD COUNT 10.9 10^3/uL (4.0-10.0)
[2021-12-21 04:39] LABS: INR 1.06; PROTHROMBIN TIME 14.2 SECONDS (12.7-14.5)
[2021-12-21 04:54] LABS: BLOOD UREA NITROGEN 8 MG/DL (7-18); CALCIUM LEVEL 8.5 MG/DL (8.8-10.2); CARBON DIOXIDE LEVEL 31 MEQ/L (21-32); CHLORIDE LEVEL 96 MEQ/L (98-107); GLOMERULAR FILTRATION RATE > 60.0 (>39); GLUCOSE, FASTING 123 MG/DL (70-100); MAGNESIUM LEVEL 1.7 MG/DL (1.8-2.4); POTASSIUM SERUM 3.6 MEQ/L (3.5-5.1); SODIUM LEVEL 131 MEQ/L (136-145)
[2021-12-21 06:00] VITALS: BP 150/78
[2021-12-21] MEDS ORDERED: MAG SULF 1GM/100ML (MAG RUN) 1 GM in IV 1 EA IV ONE (08:00)
[2021-12-21] MEDS: PHENYTOIN INJ 250 MG/5 ML VIAL (J1165) IV SCH ×2 (09:38→17:30)
[2021-12-21] MEDS: LEVOTHYROXINE 100MCG (0.1MG) 5ML SDV PF (SOLUTION FORM) IV SCH (09:38)
[2021-12-21] MEDS: cefTRIAXone SOD 1 GM in D5W MINI-BAG PLUS 50 ML IV SCH (09:53)
[2021-12-21 16:42] VITALS: BP 145/76
[2021-12-21 22:00] VITALS: BP 143/75
[2021-12-22] MEDS: PHENYTOIN INJ 250 MG/5 ML VIAL (J1165) IV SCH ×3 (01:04→17:23)
[2021-12-22 05:00] VITALS: BP 139/72
[2021-12-22 07:38] LABS: HEMATOCRIT 39.3 % (36.0-47.0); HEMOGLOBIN 13.5 g/dl (12.0-15.5); MEAN CORPUSCULAR HEMOGLOBIN 31.8 pg (27.0-33.0); MEAN CORPUSCULAR HGB CONC 34.4 g/dl (32.0-36.5); MEAN CORPUSCULAR VOLUME 92.7 fl (80.0-96.0); PLATELET COUNT, AUTOMATED 198 10^3/uL (150-450); RED BLOOD COUNT 4.24 10^6/uL (4.00-5.40); WHITE BLOOD COUNT 8.4 10^3/uL (4.0-10.0)
[2021-12-22 08:21] LABS: BLOOD UREA NITROGEN 8 MG/DL (7-18); CALCIUM LEVEL 8.2 MG/DL (8.8-10.2); CARBON DIOXIDE LEVEL 27 MEQ/L (21-32); CHLORIDE LEVEL 97 MEQ/L (98-107); CREATININE FOR GFR 0.46 MG/DL (0.55-1.30); GLOMERULAR FILTRATION RATE > 60.0 (>39); GLUCOSE, FASTING 121 MG/DL (70-100); MAGNESIUM LEVEL 1.8 MG/DL (1.8-2.4); SODIUM LEVEL 132 MEQ/L (136-145)
[2021-12-22] MEDS: cefTRIAXone SOD 1 GM in D5W MINI-BAG PLUS 50 ML IV SCH (08:57)
[2021-12-22] MEDS: LEVOTHYROXINE 100MCG (0.1MG) 5ML SDV PF (SOLUTION FORM) IV SCH (08:57)
[2021-12-22] MEDS: KCL 10MEQ/100ML SWI (KRUN) 10 MEQ in IV 1 EA IV SCH ×2 (10:17→12:26)
[2021-12-22] MEDS ORDERED: MIRALAX *UNIT DOSE* 17GM PACKET PO ONE (11:30)
[2021-12-22] MEDS ORDERED: BISACODYL 10 MG SUPP PR ONE (11:30)
[2021-12-22] MEDS: KCL 40MEQ in NS 1000ML 1,000 ML IV SCH (11:46)
[2021-12-22 16:00] VITALS: BP 130/70
[2021-12-22 20:00] VITALS: BP 150/76
[2021-12-23] VITALS (10 sets, daily range): BP systolic 107–150; BP diastolic 62–71
[2021-12-23] MEDS: PHENYTOIN INJ 250 MG/5 ML VIAL (J1165) IV SCH ×3 (01:36→17:39)
[2021-12-23] MEDS: KCL 40MEQ in NS 1000ML 1,000 ML IV SCH ×3 (02:33→17:39)
[2021-12-23 06:16] LABS: HEMATOCRIT 41.6 % (36.0-47.0); HEMOGLOBIN 13.8 g/dl (12.0-15.5); MEAN CORPUSCULAR HGB CONC 33.2 g/dl (32.0-36.5); MEAN CORPUSCULAR VOLUME 93.5 fl (80.0-96.0); PLATELET COUNT, AUTOMATED 198 10^3/uL (150-450); RED BLOOD COUNT 4.45 10^6/uL (4.00-5.40); WHITE BLOOD COUNT 7.4 10^3/uL (4.0-10.0)
[2021-12-23] MEDS ORDERED: LIDOCAINE 1% SDV 30ML VIAL As Ordered ONE (06:45)
[2021-12-23] MEDS ORDERED: BUPIVACAINE HCL 0.25% 30ML VIAL As Ordered ONE (06:45)
[2021-12-23 07:00] LABS: BLOOD UREA NITROGEN 7 MG/DL (7-18); CALCIUM LEVEL 8.3 MG/DL (8.8-10.2); CARBON DIOXIDE LEVEL 30 MEQ/L (21-32); CHLORIDE LEVEL 95 MEQ/L (98-107); CREATININE FOR GFR 0.45 MG/DL (0.55-1.30); GLOMERULAR FILTRATION RATE > 60.0 (>39); GLUCOSE, FASTING 100 MG/DL (70-100); MAGNESIUM LEVEL 1.9 MG/DL (1.8-2.4); POTASSIUM SERUM 3.6 MEQ/L (3.5-5.1); SODIUM LEVEL 132 MEQ/L (136-145)
[2021-12-23] MEDS ORDERED: UNASYN 3GM VIAL As Ordered ONE (08:33)
[2021-12-23] MEDS ORDERED: AMPICILLIN SOD/SULBACTAM SOD 3 GM in D5W MINI-BAG PLUS 100 ML IV ONE (08:35)
[2021-12-23] MEDS ORDERED: dexameTHASONE 4 MG/ML 1ML VIAL (J1100 PER 1MG) As Ordered ONE (09:00)
[2021-12-23] MEDS ORDERED: LIDOCAINE 2% 100MG/5ML SDV (FOR ANES.) As Ordered ONE (09:00)
[2021-12-23] MEDS ORDERED: propofoL 200 MG/20 ML VIAL As Ordered ONE (09:00)
[2021-12-23] MEDS ORDERED: SEVOFLURANE INHAL SOLN 250 ML BTL As Ordered ONE (09:00)
[2021-12-23] MEDS ORDERED: SUGAMMADEX SODIUM 500 MG/5 ML VIAL (BRIDION) As Ordered ONE (09:00)
[2021-12-23] MEDS ORDERED: ACETAMINOPHEN 1000MG 100ML IV BTL (OFIRMEV) (J0131 PER 10MG) As Ordered ONE (09:00)
[2021-12-23] MEDS ORDERED: PHENYLephrine 500MCG 5ML (100MCG/ML) SYRINGE As Ordered ONE (09:00)
[2021-12-23] MEDS ORDERED: fentaNYL 250 MCG/5 ML INJECTION As Ordered ONE (09:00)
[2021-12-23] MEDS ORDERED: ONDANSETRON 4MG 2ML VIAL As Ordered ONE (09:00)
[2021-12-23] MEDS ORDERED: MIDAZOLAM INJ 2MG/2ML VIAL (J2250 PER 1MG) As Ordered ONE (09:00)
[2021-12-23] MEDS ORDERED: METOCLOPRAMIDE INJ 10MG/2ML VIAL (J2765 PER 1) As Ordered ONE (09:00)
[2021-12-23] MEDS ORDERED: ROCURONIUM BROMIDE 50 MG/5 ML VIAL As Ordered ONE ×2 (09:00→09:38)
[2021-12-23] MEDS ORDERED: PHENYTOIN 100 MG/2 ML VIAL (J1165) As Ordered ONE ×2 (09:01→09:02)
[2021-12-23] MEDS ORDERED: HYDROmorphone HCL 2MG/ML 1ML VIAL As Ordered ONE (09:46)
[2021-12-23] MEDS ORDERED: KETOROLAC 60MG 2ML VIAL As Ordered ONE (09:49)
[2021-12-23] MEDS ORDERED: HYDROMORPHONE HCL 0.5 MG/ 0.5 ML SYRINGE (J1170 PER 1) IV PRN (10:20)
[2021-12-23] MEDS ORDERED: fentaNYL 100 MCG/2 ML INJECTION IV PRN (10:20)
[2021-12-23] MEDS ORDERED: LR 1,000 ML IV SCH (10:20)
[2021-12-23] MEDS ORDERED: METOCLOPRAMIDE INJ 10MG/2ML VIAL (J2765 PER 1) IV PRN (10:20)
[2021-12-23] MEDS ORDERED: ALBUTEROL SULFATE 2.5 MG/0.5 ML INH NEB SOLN INH ONE (10:20)
[2021-12-23] MEDS ORDERED: ONDANSETRON 4MG 2ML VIAL IV PRN (10:20)
[2021-12-23] MEDS: LEVOTHYROXINE 100MCG (0.1MG) 5ML SDV PF (SOLUTION FORM) IV SCH (11:26)
[2021-12-24 00:15] VITALS: BP 129/69
[2021-12-24] MEDS: PHENYTOIN INJ 250 MG/5 ML VIAL (J1165) IV SCH ×2 (00:26→08:44)
[2021-12-24] MEDS: KCL 40MEQ in NS 1000ML 1,000 ML IV SCH (02:18)
[2021-12-24 06:00] VITALS: BP 142/74
[2021-12-24 06:58] LABS: HEMATOCRIT 37.8 % (36.0-47.0); HEMOGLOBIN 12.3 g/dl (12.0-15.5); MEAN CORPUSCULAR HEMOGLOBIN 31.5 pg (27.0-33.0); MEAN CORPUSCULAR HGB CONC 32.5 g/dl (32.0-36.5); MEAN CORPUSCULAR VOLUME 96.9 fl (80.0-96.0); PLATELET COUNT, AUTOMATED 167 10^3/uL (150-450); WHITE BLOOD COUNT 5.2 10^3/uL (4.0-10.0)
[2021-12-24 07:25] LABS: BLOOD UREA NITROGEN 7 MG/DL (7-18); CALCIUM LEVEL 8.3 MG/DL (8.8-10.2); CARBON DIOXIDE LEVEL 23 MEQ/L (21-32); CHLORIDE LEVEL 104 MEQ/L (98-107); CREATININE FOR GFR 0.34 MG/DL (0.55-1.30); GLOMERULAR FILTRATION RATE > 60.0 (>39); GLUCOSE, FASTING 68 MG/DL (70-100); MAGNESIUM LEVEL 1.8 MG/DL (1.8-2.4); POTASSIUM SERUM 4.4 MEQ/L (3.5-5.1); SODIUM LEVEL 134 MEQ/L (136-145)
[2021-12-24] MEDS: LEVOTHYROXINE 100MCG (0.1MG) 5ML SDV PF (SOLUTION FORM) IV SCH (08:44)
[2021-12-24 10:00] VITALS: BP 138/71
[2021-12-24 14:00] VITALS: BP 137/70
[2021-12-24] MEDS: PHENYTOIN ER 100 MG CAP PO SCH (20:34)
[2021-12-24 22:00] VITALS: BP 130/70
[2021-12-25 06:00] VITALS: BP 133/70
[2021-12-25] MEDS ORDERED: LEVOTHYROXINE 75MCG TABLET (0.075MG) PO SCH (06:00)
[2021-12-25] MEDS ORDERED: LEVOTHYROXINE 100MCG TABLET (0.1MG) PO SCH (06:00)
[2021-12-25 06:42] LABS: HEMATOCRIT 41.6 % (36.0-47.0); HEMOGLOBIN 13.8 g/dl (12.0-15.5); MEAN CORPUSCULAR HEMOGLOBIN 31.5 pg (27.0-33.0); MEAN CORPUSCULAR HGB CONC 33.2 g/dl (32.0-36.5); PLATELET COUNT, AUTOMATED 219 10^3/uL (150-450); RED BLOOD COUNT 4.38 10^6/uL (4.00-5.40); WHITE BLOOD COUNT 6.8 10^3/uL (4.0-10.0)
[2021-12-25 07:12] LABS: BLOOD UREA NITROGEN 7 MG/DL (7-18); CALCIUM LEVEL 8.9 MG/DL (8.8-10.2); CARBON DIOXIDE LEVEL 28 MEQ/L (21-32); CHLORIDE LEVEL 101 MEQ/L (98-107); CREATININE FOR GFR 0.54 MG/DL (0.55-1.30); GLOMERULAR FILTRATION RATE > 60.0 (>39); GLUCOSE, FASTING 108 MG/DL (70-100); MAGNESIUM LEVEL 1.8 MG/DL (1.8-2.4); POTASSIUM SERUM 4.2 MEQ/L (3.5-5.1); SODIUM LEVEL 136 MEQ/L (136-145)
[2021-12-25] MEDS: PHENYTOIN ER 100 MG CAP PO SCH (08:51)
== END 2021-12-25 12:30 | disposition home or self-care (01) | DRG 337 ==
LOC: M ED 21:09 → M ED INP 12-21 01:12 → M MSPAV 12-21 02:37
PROVIDERS: ADMIT Family Medicine; ATTEND Internal Medicine Nephrology
PROC: 0DN84ZZ Release Small Intestine, Percutaneous Endoscopic Approach (ICD-10-PCS; principal; 2021-12-23 08:30)
DX: K56.52 Intestinal adhesions [bands] with complete obstruction (principal); G40.909 Epilepsy, unspecified, not intractable, without status epilepticus; I10 Essential (primary) hypertension; E78.5 Hyperlipidemia, unspecified; E03.9 Hypothyroidism, unspecified; Z90.79 Acquired absence of other genital organ(s); I25.10 Atherosclerotic heart disease of native coronary artery without angina pectoris; F17.200 Nicotine dependence, unspecified, uncomplicated; E87.6 Hypokalemia; E83.42 Hypomagnesemia; Z79.890 Hormone replacement therapy; Z79.899 Other long term (current) drug therapy; Z20.822 Contact with and (suspected) exposure to COVID-19

== ENCOUNTER → 2022-02-07 | Outpatient (CLI) | payer MEDICARE, BC, OTHER ==
[~2022-02-07] MED LIST changes: +LEVO175T19 PO; +NICO1LOZ11 MT; +PHEN100C PO; +PHEN50CH4 PO; +PHEN50TA PO
== END ==
LOC: M RAD 10:29
PROVIDERS: ATTEND Internal Medicine
DX: F17.211 Nicotine dependence, cigarettes, in remission (principal); Z12.2 Encounter for screening for malignant neoplasm of respiratory organs

== ENCOUNTER → 2022-05-21 | Outpatient (CLI) | payer MEDICARE, BC, OTHER | LOC: M WHC 08:19 | PROVIDERS: ATTEND Internal Medicine | DX: Z12.31 Encounter for screening mammogram for malignant neoplasm of breast (principal) ==

== ENCOUNTER → 2023-03-18 | Outpatient (CLI) | payer MEDICARE, BC, OTHER | LOC: M RAD 13:23 | PROVIDERS: ATTEND Internal Medicine | DX: Z12.2 Encounter for screening for malignant neoplasm of respiratory organs (principal); F17.210 Nicotine dependence, cigarettes, uncomplicated ==

== ENCOUNTER → 2023-07-13 | Outpatient (CLI) | payer MEDICARE, BC, OTHER | LOC: M WHC 08:24 | PROVIDERS: ATTEND Internal Medicine | DX: Z12.31 Encounter for screening mammogram for malignant neoplasm of breast (principal) ==

== ENCOUNTER → 2023-09-25 | Outpatient (CLI) | payer MEDICARE, BC, OTHER | LOC: M WHC 08:32 | PROVIDERS: ATTEND Internal Medicine | DX: M85.851 Other specified disorders of bone density and structure, right thigh (principal); M85.852 Other specified disorders of bone density and structure, left thigh; Z13.820 Encounter for screening for osteoporosis ==

== ENCOUNTER → 2024-03-15 | Outpatient (REF) | payer MEDICARE, BC, OTHER ==
[~2024-03-15] MED LIST changes: -PHEN50CH4 PO; +PHEN50TA3 PO
== END ==
LOC: M LAB REF 17:20
PROVIDERS: ATTEND Internal Medicine
DX: F33.42 Major depressive disorder, recurrent, in full remission (principal)

== ENCOUNTER 2024-04-09 08:46 | Observation (INO) | payer MEDICARE, BC, OTHER ==
[~2024-04-09] VITALS: Ht 160 cm; Wt 79.7 kg
[2024-04-09] MEDS: IBUPROFEN 600MG TAB PO ONE (09:30)
[2024-04-09 11:27] LABS: BASO % 0.3 % (0.0-1.0); HEMATOCRIT 43.1 % (36.0-47.0); HEMOGLOBIN 14.4 g/dl (12.0-15.5); LYMPH # 1.4 10^3/uL (1.5-5.0); LYMPH % 15.5 % (24.0-44.0); MEAN CORPUSCULAR HEMOGLOBIN 31.8 pg (27.0-33.0); MEAN CORPUSCULAR HGB CONC 33.4 g/dl (32.0-36.5); MEAN CORPUSCULAR VOLUME 95.1 fl (80.0-96.0); MONO # 0.5 10^3/uL (0.0-0.8); MONO % 5.2 % (2.0-8.0); NEUTROPHILS # 6.9 10^3/uL (1.5-8.5); NEUTROPHILS % 78.7 % (36.0-66.0); PLATELET COUNT, AUTOMATED 242 10^3/uL (150-450); RED BLOOD COUNT 4.53 10^6/uL (4.00-5.40); WHITE BLOOD COUNT 8.7 10^3/uL (4.0-10.0)
[2024-04-09 11:45] LABS: BLOOD UREA NITROGEN 11 MG/DL (9-23); CALCIUM LEVEL 9.2 MG/DL (8.3-10.6); CARBON DIOXIDE LEVEL 27 MMOL/L (20-31); CHLORIDE LEVEL 103 MMOL/L (98-107); CREATININE FOR GFR 0.49 MG/DL (0.55-1.30); GLOMERULAR FILTRATION RATE > 60.0 (>39); GLUCOSE, FASTING 118 MG/DL (74-106); POTASSIUM SERUM 4.7 MMOL/L (3.5-5.1); SODIUM LEVEL 137 MMOL/L (136-145)
[2024-04-09 11:50] LABS: INR 0.98; PROTHROMBIN TIME 13.3 SECONDS (12.5-14.5)
[2024-04-09] MEDS ORDERED: KP F1200 PO (12:48)
[2024-04-09] MEDS ORDERED: SERT25TA85 PO (12:48)
[2024-04-09] MEDS ORDERED: HOME MED LIST COMPLETE! XX SCH (12:50)
[2024-04-09] MEDS ORDERED: ISOVUE-370 76% 100ML VIAL As Ordered ONE (13:05)
[2024-04-09] MEDS: MORPHINE 4 MG/ML 1ML VIAL IV ONE (13:05)
[2024-04-09 16:15] VITALS: BP 162/77; TEMP 97.3; O2SAT 98
[2024-04-09] MEDS ORDERED: ONDANSETRON 4MG 2ML VIAL IV PRN (17:45)
[2024-04-09] MEDS: MORPHINE 2 MG/ML 1ML VIAL IV PRN (17:48)
[2024-04-09] MEDS: PERCOCET 5MG/325MG TAB PO PRN (18:55)
[2024-04-09 19:22] VITALS: BP 151/75; TEMP 97.9; O2SAT 98
[2024-04-09] MEDS: PHENYTOIN ER 100 MG CAP PO SCH (20:41)
[2024-04-09] MEDS ORDERED: NALOXONE INJ 0.4MG/1ML VIAL IV PRN (22:20)
[2024-04-09] MEDS: METHOCARBAMOL 1,000 MG/10 ML VIAL IV ONE (22:59)
[2024-04-10] VITALS (7 sets, daily range): BP systolic 124–134; BP diastolic 61–65; TEMP 97.5–98.1; O2SAT 92–96
[2024-04-10] MEDS ORDERED: methocarbamoL 500 MG TAB PO PRN (05:00)
[2024-04-10] MEDS: LEVOTHYROXINE 100MCG TABLET (0.1MG) PO SCH (05:46)
[2024-04-10] MEDS: MORPHINE 2 MG/ML 1ML VIAL IV PRN (05:52)
[2024-04-10] MEDS ORDERED: fentaNYL 100 MCG/2 ML INJECTION IV PRN ×2 (07:40→14:25)
[2024-04-10] MEDS ORDERED: MEPERIDINE 25 MG/ML 1ML VIAL IV PRN (07:40)
[2024-04-10] MEDS ORDERED: ONDANSETRON 4MG 2ML VIAL IV PRN ×2 (07:40→14:25)
[2024-04-10] MEDS ORDERED: HYDROMORPHONE HCL 0.5 MG/ 0.5 ML SYRINGE IV PRN ×2 (07:40→14:25)
[2024-04-10] MEDS ORDERED: oxyCODONE 5MG TAB PO PRN ×2 (07:40→14:25)
[2024-04-10] MEDS: VITAMIN D 1,000 INTERNATIONAL UNITS TABLET PO SCH (08:26)
[2024-04-10] MEDS: SERTRALINE HCL 25 MG TABLET PO SCH (08:27)
[2024-04-10] MEDS: ENOXAPARIN 40MG/0.4ML SYRINGE (J1650 PER 10MG) SC SCH (09:00)
[2024-04-10] MEDS ORDERED: MIDAZOLAM INJ 2MG/2ML VIAL As Ordered ONE (09:06)
[2024-04-10] MEDS ORDERED: fentaNYL 100 MCG/2 ML INJECTION As Ordered ONE (09:06)
[2024-04-10] MEDS ORDERED: propofoL 200 MG/20 ML VIAL As Ordered ONE (09:06)
[2024-04-10] MEDS ORDERED: LIDOCAINE 2% 100MG/5ML SDV (FOR ANES.) As Ordered ONE (09:06)
[2024-04-10] MEDS ORDERED: ROCURONIUM BROMIDE 50MG/5ML VIAL As Ordered ONE (09:06)
[2024-04-10] MEDS: ROPIvacaine 0.5% 30ML VIAL PN ONE ×2 (09:30→09:35)
[2024-04-10] MEDS ORDERED: ePHEDrine SULFATE 25 MG/5 ML(5MG/ML) SYRINGE As Ordered ONE (10:11)
[2024-04-10] MEDS ORDERED: PHENYLephrine 500MCG 5ML (100MCG/ML) SYRINGE As Ordered ONE (10:11)
[2024-04-10] MEDS: ceFAZolin 2 GM/D5W 50 ML IV BAG As Ordered ONE (10:17)
[2024-04-10] MEDS: TRANEXAMIC ACID 100 MG/ML 10ML VIAL As Ordered ONE (10:31)
[2024-04-10] MEDS ORDERED: GLYCOPYRROLATE INJ 0.2 MG/ML 2 ML VIAL As Ordered ONE (10:33)
[2024-04-10] MEDS ORDERED: ONDANSETRON 4MG 2ML VIAL As Ordered ONE (11:57)
[2024-04-10] MEDS ORDERED: SUGAMMADEX SODIUM 500 MG/5 ML VIAL (BRIDION) As Ordered ONE (11:57)
[2024-04-10] MEDS: VANCOMYCIN 1000MG/20ML VIAL As Ordered ONE (14:42)
[2024-04-10] MEDS ORDERED: SODIUM CHLORIDE NASAL 0.65% SPRAY BTL (OCEAN) PRN (16:50)
[2024-04-10] MEDS: LR 1,000 ML IV SCH (18:17)
[2024-04-11 00:03] VITALS: BP 123/60; TEMP 98.6; O2SAT 93
[2024-04-11 04:00] VITALS: BP 122/68; TEMP 97.7; O2SAT 92
[2024-04-11] MEDS: PERCOCET 5MG/325MG TAB PO PRN (06:35)
[2024-04-11] MEDS: PRAVASTATIN 20 MG TAB PO SCH (08:54)
[2024-04-11 12:00] VITALS: BP 124/68; TEMP 97.9; O2SAT 96
[2024-04-11] MEDS: ACETAMINOPHEN 325 MG TAB PO PRN (17:32)
[2024-04-11 19:39] VITALS: BP 134/69; TEMP 98.4; O2SAT 69; O2SAT 96
[2024-04-12 04:08] VITALS: BP 135/68; TEMP 98.1; O2SAT 92
[2024-04-12 07:16] LABS: BASO % 0.3 % (0.0-1.0); HEMATOCRIT 34.8 % (36.0-47.0); HEMOGLOBIN 11.7 g/dl (12.0-15.5); LYMPH # 1.3 10^3/uL (1.5-5.0); MEAN CORPUSCULAR HEMOGLOBIN 31.4 pg (27.0-33.0); MEAN CORPUSCULAR HGB CONC 33.6 g/dl (32.0-36.5); MEAN CORPUSCULAR VOLUME 93.3 fl (80.0-96.0); MONO # 0.8 10^3/uL (0.0-0.8); MONO % 10.1 % (2.0-8.0); NEUTROPHILS # 5.4 10^3/uL (1.5-8.5); NEUTROPHILS % 71.9 % (36.0-66.0); PLATELET COUNT, AUTOMATED 189 10^3/uL (150-450); RED BLOOD COUNT 3.73 10^6/uL (4.00-5.40); WHITE BLOOD COUNT 7.5 10^3/uL (4.0-10.0)
[2024-04-12 07:38] LABS: ALBUMIN 2.3 G/DL (3.2-5.2); ALKALINE PHOSPHATASE 87 U/L (35-104); ALT/SGPT 14 U/L (7.0-40); AST/SGOT 21 U/L (<34); BILIRUBIN,TOTAL 0.4 MG/DL (0.3-1.2); BLOOD UREA NITROGEN 7 MG/DL (9-23); CALCIUM LEVEL 8.1 MG/DL (8.3-10.6); CARBON DIOXIDE LEVEL 28 MMOL/L (20-31); CHLORIDE LEVEL 101 MMOL/L (98-107); CREATININE FOR GFR 0.44 MG/DL (0.55-1.30); GLOMERULAR FILTRATION RATE > 60.0 (>39); GLUCOSE, FASTING 108 MG/DL (74-106); POTASSIUM SERUM 3.6 MMOL/L (3.5-5.1); SODIUM LEVEL 138 MMOL/L (136-145); TOTAL PROTEIN 5.9 G/DL (5.7-8.2)
[2024-04-12 12:00] VITALS: BP 126/66; TEMP 97.7; O2SAT 95
[2024-04-12] MEDS ORDERED: KETOROLAC TROMETHAMINE 10 MG TAB PO PRN (15:10)
[2024-04-12] MEDS ORDERED: oxyCODONE 5MG TAB PO PRN (15:15)
[2024-04-12] MEDS: SENNA 8.6 MG TAB (SENOKOT) PO SCH (15:30)
[2024-04-12] MEDS: MIRALAX *UNIT DOSE* 17GM PACKET PO PRN (15:31)
[2024-04-12 19:55] VITALS: BP 135/68; TEMP 98.1; O2SAT 94
[2024-04-13 04:10] VITALS: BP 143/83; TEMP 98.1; O2SAT 92
[2024-04-13 09:11] VITALS: BP 126/62; TEMP 97.7; O2SAT 95
[2024-04-13 11:38] VITALS: BP 118/62; TEMP 97.7; O2SAT 98
[2024-04-13 12:00] VITALS: BP 118/63; TEMP 97.5; O2SAT 97
[2024-04-13 19:53] VITALS: BP 145/90; TEMP 97.5; O2SAT 96
[2024-04-14 04:11] VITALS: BP 144/87; TEMP 97.9; O2SAT 95
[2024-04-14 12:00] VITALS: BP 128/70; TEMP 97.9; O2SAT 96
[2024-04-14 20:00] VITALS: BP 139/72; TEMP 97.9; O2SAT 96
[2024-04-15 04:00] VITALS: BP 135/71; TEMP 97.5; O2SAT 95
[2024-04-15 06:58] LABS: HEMATOCRIT 34.4 % (36.0-47.0); HEMOGLOBIN 11.3 g/dl (12.0-15.5); MEAN CORPUSCULAR HEMOGLOBIN 31.7 pg (27.0-33.0); MEAN CORPUSCULAR HGB CONC 32.8 g/dl (32.0-36.5); MEAN CORPUSCULAR VOLUME 96.4 fl (80.0-96.0); PLATELET COUNT, AUTOMATED 232 10^3/uL (150-450); RED BLOOD COUNT 3.57 10^6/uL (4.00-5.40); WHITE BLOOD COUNT 5.5 10^3/uL (4.0-10.0)
[2024-04-15 12:13] VITALS: BP 145/70; TEMP 97.5; O2SAT 99
[2024-04-15 19:29] VITALS: BP 144/73; TEMP 97.9; O2SAT 94
[2024-04-16 04:00] VITALS: BP 124/71; TEMP 97.7; O2SAT 98
[2024-04-16] MEDS: ACETAMINOPHEN 325 MG TAB PO SCH (14:11)
[2024-04-17 04:00] VITALS: BP 123/74; TEMP 97.5; O2SAT 96
[2024-04-18 04:00] VITALS: BP 119/72; TEMP 97.3; O2SAT 96
[2024-04-18 07:35] LABS: HEMATOCRIT 38.5 % (36.0-47.0); HEMOGLOBIN 12.6 g/dl (12.0-15.5); MEAN CORPUSCULAR HEMOGLOBIN 31.7 pg (27.0-33.0); MEAN CORPUSCULAR HGB CONC 32.7 g/dl (32.0-36.5); MEAN CORPUSCULAR VOLUME 96.7 fl (80.0-96.0); PLATELET COUNT, AUTOMATED 345 10^3/uL (150-450); RED BLOOD COUNT 3.98 10^6/uL (4.00-5.40); WHITE BLOOD COUNT 5.6 10^3/uL (4.0-10.0)
[2024-04-19 04:00] VITALS: BP 142/81; TEMP 97.3; O2SAT 98
[2024-04-20 04:58] VITALS: BP 129/81; TEMP 97.3; O2SAT 95
[2024-04-21 04:41] VITALS: BP 123/77; TEMP 97.7; O2SAT 97
[2024-04-21 06:45] LABS: HEMATOCRIT 37.4 % (36.0-47.0); HEMOGLOBIN 12.5 g/dl (12.0-15.5); MEAN CORPUSCULAR HGB CONC 33.4 g/dl (32.0-36.5); MEAN CORPUSCULAR VOLUME 95.7 fl (80.0-96.0); PLATELET COUNT, AUTOMATED 389 10^3/uL (150-450); RED BLOOD COUNT 3.91 10^6/uL (4.00-5.40); WHITE BLOOD COUNT 5.1 10^3/uL (4.0-10.0)
[2024-04-22 04:00] VITALS: BP 143/74; TEMP 98.1; O2SAT 95
[2024-04-22] MEDS ORDERED: ACET-683 PO (08:43)
[2024-04-22] MEDS ORDERED: ASPI81TA26 PO (08:43)
[2024-04-22] MEDS ORDERED: SENN1TAB85 PO (08:43)
== END 2024-04-22 15:45 | disposition home health service (06) ==
LOC: M ED 08:46 → M ED INP 13:04 → INTOOBSV 13:04 → M MS5PR 15:50
PROVIDERS: ADMIT Student in an Organized Health Care Education/Training Program; ATTEND Internal Medicine Nephrology
DX: S82.852A Displaced trimalleolar fracture of left lower leg, initial encounter for closed fracture (principal); E86.0 Dehydration; W00.9XXA Unspecified fall due to ice and snow, initial encounter; I10 Essential (primary) hypertension; E66.9 Obesity, unspecified; G40.909 Epilepsy, unspecified, not intractable, without status epilepticus; Z79.899 Other long term (current) drug therapy; E03.9 Hypothyroidism, unspecified; E78.5 Hyperlipidemia, unspecified; K57.30 Diverticulosis of large intestine without perforation or abscess without bleeding
CPT/HCPCS: 27822; 36415; 73590; 73610; 73630; 73700; 76000; 80048; 80053; 85025; 85027; 85610; 86850; 86900; 86901; 96372; 96374; 96375; 96376; 97116; 97161; 97165; 97530; 97535; 97542; 99284; C1713; G0378; J0690; J1100; J1596; J1650; J2250; J2371; J2405; J2800; J3010; J3370; Q9967

== ENCOUNTER → 2024-05-11 | Outpatient (CLI) | payer MEDICARE, BC, OTHER ==
[~2024-05-11] MED LIST changes: +ACET-683 PO; +KP F1200 PO; +SENN1TAB85 PO; +SERT25TA85 PO
== END ==
LOC: M RAD 08:22
PROVIDERS: ATTEND Internal Medicine
DX: Z12.2 Encounter for screening for malignant neoplasm of respiratory organs (principal); F17.210 Nicotine dependence, cigarettes, uncomplicated

== ENCOUNTER → 2024-05-26 | Outpatient (CLI) | payer MEDICARE, BC, OTHER | LOC: M SOG 15:19 | PROVIDERS: ATTEND Orthopaedic Surgery | DX: S82.852D Displaced trimalleolar fracture of left lower leg, subsequent encounter for closed fracture with routine healing (principal) ==

== ENCOUNTER → 2024-07-07 | Outpatient (CLI) | payer MEDICARE, BC, OTHER | LOC: M SOG 07:51 | PROVIDERS: ATTEND Physician Assistant | DX: S82.852D Displaced trimalleolar fracture of left lower leg, subsequent encounter for closed fracture with routine healing (principal) ==

== ENCOUNTER → 2025-01-30 | Outpatient (CLI) | payer MEDICARE, BC, OTHER ==
[~2025-01-30] MED LIST changes: +ALEN70TA82 PO; -PRAV40TA2 PO; +PRAV40TA85 PO; +SERT50TA29 PO
== END ==
LOC: M CARPUL 10:35
PROVIDERS: ATTEND Physician Assistant
DX: I08.0 Rheumatic disorders of both mitral and aortic valves (principal); I77.810 Thoracic aortic ectasia; I31.39 Other pericardial effusion (noninflammatory)

== ENCOUNTER → 2025-04-03 | Outpatient (REF) | payer MEDICARE, BC, OTHER ==
[2025-04-04 07:42] LABS: PROTEIN, TOTAL SO 7.0 g/dL (6.1-8.1)
[2025-04-05 07:03] LABS: ALBUMIN SO 3.7 g/dL (3.8-4.8); ALPHA 1 GLOBULINS SO 0.4 g/dL (0.2-0.3); ALPHA 2 GLOBULINS SO 1.0 g/dL (0.5-0.9); BETA 2 GLOBULIN SO 0.5 g/dL (0.2-0.5); BETA GLOBULIN SO 0.4 g/dL (0.4-0.6); GAMMA GLOBULINS SO 1.1 g/dL (0.8-1.7)
[2025-04-05 12:57] LABS: FREE KAPPA LIGHT CHAINS SERUM 26.0 mg/L (3.3-19.4); FREE LAMBDA LIGHT CHAINS SERUM 25.4 mg/L (5.7-26.3); KAPPA/LAMBDA RATIO SERUM 1.02 (0.26-1.65)
== END ==
LOC: M LAB REF 12:28
PROVIDERS: ATTEND Internal Medicine
DX: R74.01 Elevation of levels of liver transaminase levels (principal)

== ENCOUNTER → 2025-05-03 | Outpatient (CLI) | payer MEDICARE, BC, OTHER | LOC: M SOG 07:44 | PROVIDERS: ATTEND Physician Assistant | DX: S82.852D Displaced trimalleolar fracture of left lower leg, subsequent encounter for closed fracture with routine healing (principal); Y93.9 Activity, unspecified; Y92.9 Unspecified place or not applicable ==